=== PATIENT | female | born 1965 | race Caucasian/White ===

== ENCOUNTER 2017-06-05 14:49 | Inpatient (IN) ==
[2017-06-05] MEDS ORDERED: ACETAMINOPHEN 325 MG TABLET PO PRN (15:06)
[2017-06-05] MEDS ORDERED: ONDANSETRON 4 MG/2 ML VIAL IV PRN (15:06)
[2017-06-05] MEDS ORDERED: ALBUTEROL 2.5 MG/3 ML NEB RESP TX PRN (15:09)
[2017-06-05] MEDS ORDERED: SODIUM CHLORIDE 0.45% 1,000 ML IV SCH (15:30)
[2017-06-05] MEDS ORDERED: LEVOFLOXACIN INJ 750 MG in PREMIX 1 EACH IV SCH (16:00)
[2017-06-05 16:05] LABS: Basophils # 0.1 10*3/uL (0.0-0.2); Basophils % 0.9 % (0.0-0.8); Eosinophils # 0.2 10*3/uL (0.0-0.87); Eosinophils % 1.7 % (0.00-10.9); Hematocrit 36.7 VOL% (35.7-47.0); Hemoglobin 12.5 GM/DL (12.0-16.0); Immature Granulocytes % 0.6 %; Immature Granulocytes Absolute 0.06 #; Lymphocytes # 3.6 10*3/uL (1.4-4.0); Lymphocytes % 38.3 % (21.3-54.2); Mean Corpuscular HGB Conc 34.1 GM/DL (32-36); Mean Corpuscular Hemoglobin 30 PG (27-34); Mean Corpuscular Volume 89.1 FL (87-102); Mean Platelet Volume 9.8 FL (9.6-12.0); Monocytes # 0.6 10*3/uL (0.11-0.8); Monocytes % 6.7 % (1.7-12.7); Neutrophils # 4.8 10*3/uL (1.4-7.4); Neutrophils % 51.8 % (38.7-73.9); Platelet Count 530 T/CUMM (130-400); Red Blood Count 4.12 MC/CUMM (3.8-5.5); Red Cell Distribution Width 12.5 % (9.3-17.3); White Blood Count 9.3 T/CUMM (4-12)
--- NOTE | 2017-06-05 16:40 | EKG Report ---
Stationary ECG Study [facility] Test Date: 06/05/2017 4:41:26 PM Pat Name: GOVIND AGUAYO Department: Room: 234 Gender: F [employer]ish Mixer: : [id number] Requested by: Lico Hernandes Order Number: [id number] Reading MD: ELIJAH BANG Intervals [place] Rate: 62 P: 39 WI: 146 QRS: 15 QRSD: 93 T: 4 QT: 407 QTc: 412 Interpretive Statements SINUS RHYTHM Borderline repol abnorm Electronically Signed On 06-05-17 19:37:11 CDT by ELIJAH BANG [email or web address]
[2017-06-05 16:41] LABS: Risk Ratio 4.24; VLDL CHOLESTEROL 22.8 MG/DL
[2017-06-05 16:54] LABS: Alanine Aminotransferase 52 U/L (13-56); Albumin 3.7 G/DL (3.4-5.0); Alkaline Phosphatase 74 U/L (45-117); Aspartate Amino Transferase 25 U/L (0-37); Bilirubin,Total < 0.39 MG/DL (0.2-1.0); Blood Urea Nitrogen 20 MG/DL (7-18); Glucose 95 MG/DL (74-106); Osmolality,Calculated 279.5 MOS/KG (273-304); Potassium 4.5 MMOL/L (3.5-5.1); Sodium 139 MMOL/L (136-145); Total Protein 8.2 G/DL (6.4-8.3)
[2017-06-05] MEDS: methylPREDNISolone SOD SUC 40 MG/1 ML VIAL IV SCH ×2 (17:08→23:19)
[2017-06-05] MEDS: ENOXAPARIN 40 MG/0.4 ML SYRINGE SUBCUT SCH (17:10)
[2017-06-05 18:16] LABS: Apearance,Urine CLEAR (Clear); Bilirubin,Urine Negative (Negative); Blood, Urine Negative (Negative); Glucose,Urine (UA) Negative (Negative); Ketones,Urine 5 mg/dL (Negative); Mucus,Urine Few /LPF (Occasional); Nitrite,Urine Negative (Negative); Protein,Urine Negative; RBC,Urine 1 /HPF (0-4); Squamous Epithelial Cell,Urine Occasional /HPF (0-10); Urine Color Yellow (Yellow); Urine Specific Gravity 1.016 (1.001-1.035); Urine Urobilinogen < 2.0 EU/DL (0.2-1.0); WBC,Urine 1 /HPF (0-6)
[2017-06-05 19:10] LABS: Platelet Estimate Increased
[2017-06-05] MEDS: ALBUTEROL 2.5 MG/3 ML NEB RESP TX SCH (19:11)
[2017-06-05] MEDS: DOCUSATE SODIUM 100 MG CAPSULE PO SCH (23:18)
[2017-06-06] MEDS: ALBUTEROL 2.5 MG/3 ML NEB RESP TX SCH ×4 (00:53→20:50)
--- NOTE | 2017-06-06 07:06 | Family Practice History&Phys ---
Assessment and Plan (1) Community acquired pneumonia Status: Acute Assessment and plan: 06/06/2017: Patient's chest x-ray was actually bit improved yesterday. This will be repeated in the a.m. She is less dyspneic this morning. Current Visit: Yes (2) Acute bronchospasm Status: Acute Assessment and plan: 06/06/2017: Patient's wheezing has certainly improved with bronchodilator therapy and IV steroids. I have asked her to increase her activity and will also add incentive spirometry. Current Visit: Yes History of Present Illness Chief complaint: Cough, fever and shortness of breath History of present illness: Ms. Perry is a 51 year old female Patient 51-year-old white female presented the office on day of admission with complaint of cough, fever and increasing shortness of breath. Patient was seen in the after hours clinic 2 days before admission and found to have a right basilar stricture lobe pneumonia. Patient was treated with Levaquin and given a shot of Rocephin. Patient's fever did constanza but she continued to have increasing cough, wheezing and shortness of breath and told me she got very dyspneic the night before she came the office. Patient states she was a bit frightened by this. Repeat chest x-ray in the office showed improvement in her right posterior basilar infiltrate. Patient was noted to have prominent wheezing and dyspnea with any exertion. I felt that admission was warranted. Home Medications Medication Instructions Recorded Confirmed Type Amlodipine Bes/Olmesartan Med 1 each PO DAILY 06/05/17 06/05/17 History [Marie 10-20 mg Tablet] Aspirin Tab 325 mg PO DAILY 06/05/17 06/05/17 History Benzonatate [Tessalon] 200 mg PO TID 06/05/17 06/05/17 History Furosemide Tab [Lasix Tab] 20 mg PO DAILY 06/05/17 06/05/17 History Levofloxacin Tab [Levaquin Tab] 750 tablet PO DAILY 06/05/17 06/05/17 History Levothyroxine Tab [Synthroid Tab] 175 mcg PO DAILY 06/05/17 06/05/17 History Metoprolol Succinate 25 mg PO DAILY 06/05/17 06/05/17 History Potassium Chloride Cap/Tab [K Dur] 20 meq PO DAILY 06/05/17 06/05/17 History Allergies Allergy/AdvReac Type Severity Reaction Status Date / Time bisoprolol Allergy Verified 06/05/17 19:17 lisinopril Allergy Verified 06/05/17 19:17 Sulfa (Sulfonamide Allergy RASH Verified 06/05/17 19:17 Antibiotics) - Constitutional Constitutional: Present: chills, fatigue, fever(s), weakness - EENT Eyes: Absent: blurry vision, loss of vision Ears: Absent: decreased hearing, ear pain Nose, mouth and throat: Present: hoarseness, nasal congestion, sinus pressure, sore throat - Cardiovascular Cardiovascular: Present: chest pain at rest (Pleuritic right posterior chest pain), dyspnea, dyspnea on exertion. Absent: orthopnea, palpitations, PND - Respiratory Respiratory: Present: as per HPI, cough, dyspnea, dyspnea on exertion, wheezing - Gastrointestinal Gastrointestinal: Absent: abdominal pain, diarrhea, dyspepsia, dysphagia, nausea , vomiting - Genitourinary Genitourinary: Absent: dysuria, hematuria, urinary frequency - Musculoskeletal Musculoskeletal: Absent: back pain, joint swelling - Neurological Neurological: Absent: confusion, focal weakness, numbness, paresthesias - Psychiatric Psychiatric: Absent: anxiety, confusion - Endocrine Endocrine: Absent: fatigue, polydipsia, polyphagia - Hematologic/Lymphatic Hematologic/Lymphatic: Absent: easy bleeding, easy bruising Medical,Surgical,& Family Hx - Medical History Cardio: History of: Hypertension Endocrine: History of: Thyroid Disorder (hyperthroidism) Respiratory: History of: Obstructive Sleep Apnea - Surgical History Abdominal Surgeries: Surgical HX of: Hernia Repair Reproductive Surgeries: Surgical HX of;: Hysterectomy - Family History Family History: Reports;: Family Diabetes (maternal), Family Heart Disease ( maternal paternal), Family Hypertension (maternal paternal), Family Stroke ( paternal) Denies;: Family Cancer - Social History Smoking Status: Never smoker Frequency of Alcohol Use: Occasionally Type of Drug Use: None Exam - Constitutional Vitals: Period Temp Pulse Resp BP Sys/Owen Pulse Ox Last 24 Hr 96.3 F-98.3 F 60-84 17-20 110-120/54-79 92-96 Exam: General: Objective patient is a well-developed white female who is dyspneic at rest. Patient has audible wheezing. Patient is alert and able to give an excellent history. She is obese HEENT: Pupils equal and reactive to light. Patent nares and airway Neck: No meningismus, adenopathy, thyromegaly. There are no auscultated carotid bruits. Cardiovascular: Regular rhythm. No murmurs or gallops Chest: Patient's noted inspiratory rales in the right base and scattered inspiratory and extra wheezes in both lung anderson. Abdomen: Soft nontender to palpation No masses, rebound, guarding or tenderness. Neuro: Cranial nerves intact and DTRs and strength symmetric in all extremities. Dermatologic: No evidence of abnormal lesions or masses. Musculoskeletal: There is no joint swelling or tenderness or deformity. Extremities: Is no calf swelling or tenderness. Results - Labs CBC & BMP: 06/05/17 15:46 06/05/17 15:46 Lab Results: I have reviewed the past 24 hour labs - Diagnostic Findings Procedure: Chest x-ray: report reviewed by me (Chest x-ray in the office on 2016 revealed right posterior basilar infiltrate.)
[2017-06-06] MEDS: methylPREDNISolone SOD SUC 40 MG/1 ML VIAL IV SCH ×2 (08:35→18:04)
[2017-06-06] MEDS: BENZONATATE 100 MG CAPSULE PO SCH ×3 (08:38→20:26)
[2017-06-06] MEDS: LEVOTHYROXINE 175 MCG TABLET PO SCH (08:40)
[2017-06-06] MEDS: ENOXAPARIN 40 MG/0.4 ML SYRINGE SUBCUT SCH (08:42)
[2017-06-06] MEDS: DOCUSATE SODIUM 100 MG CAPSULE PO SCH ×2 (08:44→21:00)
[2017-06-06] MEDS ORDERED: OLMESARTAN 20 MG TABLET PO SCH (09:00)
[2017-06-06] MEDS ORDERED: amLODIPine 10 MG TABLET PO SCH (09:00)
[2017-06-06] MEDS ORDERED: FUROSEMIDE 20 MG TABLET PO SCH (09:00)
[2017-06-06] MEDS ORDERED: POTASSIUM CHLORIDE 20 MEQ TABLET PO SCH (09:00)
[2017-06-06] MEDS ORDERED: PANTOPRAZOLE 40 MG TABLET PO SCH (09:00)
[2017-06-06] MEDS ORDERED: METOPROLOL SUCCINATE XL 25 MG TABLET PO SCH (09:00)
[2017-06-06] MEDS ORDERED: LEVOFLOXACIN INJ 750 MG in PREMIX 1 EACH IV SCH (09:00)
[2017-06-06] MEDS ORDERED: ASPIRIN 325 MG TABLET PO SCH (09:00)
[2017-06-07] MEDS: ALBUTEROL 2.5 MG/3 ML NEB RESP TX SCH ×2 (01:44→08:27)
[2017-06-07] MEDS: methylPREDNISolone SOD SUC 40 MG/1 ML VIAL IV SCH (01:49)
--- NOTE | 2017-06-07 05:35 | Discharge Summary ---
Hospital Course - Hospital Course Hospital Course: Patient's a 51-year-old white female presented my office on day of admission with increased coughing, fever and wheezing. Patient has had increasing shortness of breath for the preceding 48 hours. She been seen in after hours clinic was found to have a right lower lobe pneumonia but repeat x-ray on the day of admission showed improvement in her x-ray. Patient however did not feel improved and she was quite dyspneic and had shortness of breath at rest. Patient was admitted my services she was begun on IV antibiotics, bronchodilators and IV steroids. Patient showed prompt improvement in her respiratory symptoms and her dyspnea resolved. She is able to walk up and down the halls with only a minimal amount of shortness of breath. Patient is anxious to go home and will be discharged today. Repeat chest x-ray is pending this morning. She will continue oral antibiotics, steroids and I will continue bronchodilator therapy. Diagnosis - Discharge Diagnosis (1) Community acquired pneumonia Status: Acute (2) Acute bronchospasm Status: Acute Discharge Plan - Discharge Data Disposition: Disch To Home/Self Care Condition at Discharge: Stable Discharge Diet: advance to your usual diet Activity: resume usual activities as tolerated Hygiene: no restrictions Weight Bearing at Discharge: full weight bearing Driving: no restrictions Contact your physician if you experience:: fever over 101, Shortness of breath - Discharge Medications New Albuterol Inhaler [Proventil Inhaler] 2 puff INH Q4H PRN #1 inhaler PRN Reason: Shortness Of Breath/Wheezing Albuterol Neb [Proventil Neb] 2.5 mg RESP TX Q4H PRN #100 neb PRN Reason: Shortness Of Breath/Wheezing Levofloxacin Tab [Levaquin Tab] 750 mg PO DAILY #5 tablet predniSONE TAB [PredniSONE] 20 mg PO DAILY #6 tablet Continue Metoprolol Succinate 25 mg PO DAILY Aspirin Tab 325 mg PO DAILY Amlodipine Bes/Olmesartan Med [Marie 10-20 mg Tablet] 1 each PO DAILY Potassium Chloride Cap/Tab [K Dur] 20 meq PO DAILY Furosemide Tab [Lasix Tab] 20 mg PO DAILY Benzonatate [Tessalon] 200 mg PO TID Levothyroxine Tab [Synthroid Tab] 175 mcg PO DAILY Discontinued Levofloxacin Tab [Levaquin Tab] 750 tablet PO DAILY - Follow Up or Referral Follow Up: Pancho Reis MD [Primary Care Provider] - 2 Weeks - Forms/Instructions Exam - Constitutional Vitals: Period Temp Pulse Resp BP Sys/Owen Pulse Ox Last 24 Hr 96.9 F-97.9 F 56-82 18-22 109-121/59-73 91-98 Exam: Objectively well-developed white female is awake alert and she has no dyspnea at rest. She is able give an excellent history. Cardiovascular: Heart rates regular without murmurs or gallops. Respiratory: Patient has persistent inspiratory rales and expiratory wheeze in the right lower lobe but it is much improved from admission. Abdomen: Abdomen soft and nontender to palpation. Discharge Results Procedures and tests throughout hospitalization: Pending Orders 06/05/17 15:46 Blood Culture Stat 06/07/17 04:00 XR chest 2V IN AM Chest x-ray is pending on this date. Labs on day of discharge: Labs from last 24 hours 06/06/17 07:28 C-Reactive Protein 1.46 H Preliminary micro results at discharge 06/05/17 15:46 Blood Culture - Preliminary Blood No growth at 1 day 06/05/17 15:46 Blood Culture - Preliminary Blood No growth at 1 day DS: Provider Date of admission: 06/05/17 15:10 Primary care physician: Pancho Reis MD Attending physician on admission: Pancho Reis MD Consults: 06/05/17 15:06 Consult to Case Mgmt/Social Srvs [CONS] Routine Reason for Case Mgmt/Social Srvs: Discharge Planning 06/05/17 15:09 Consult to Physician [CONS] Routine Comment: Consulting Provider: Benjamin Emanuel Person Notified: PIERRE Date Notified: 06/06/17 Time Notified: 09:11 Consult Notification Comment: DR EMANUEL STATED HE WILL SEE TOMORROW Discharging clinician: Pancho Reis MD Expected date of discharge: 06/07/17
[2017-06-07] MEDS: LEVOTHYROXINE 175 MCG TABLET PO SCH (06:17)
--- NOTE | 2017-06-07 07:17 | Pulmonology Consult Note ---
Assessment and Plan (1) Community acquired pneumonia Status: Acute Assessment and plan: Reportedly had right lower lobe infiltrate on office x-ray. No x-rays here to review. Agree with empiric Levaquin. Would keep on prednisone for about 5 days. Current Visit: Yes (2) Acute bronchospasm Status: Acute Assessment and plan: She has had recurrent episodes of bronchitis with bronchospasm. I suspect that she has asthma. I have asked her to see me in 4-6 weeks so that we can get spirometry on her and determine if she needs a controller medication for asthma. Current Visit: Yes History of Present Illness Chief complaint: Cough congestion History of present illness: Ms. Perry is a 51 year old female who has been sick for a week or so. She was seen in the office and admitted yesterday. Said to have had pneumonia on her x-ray in the office, but it is not available for review here. She has gotten a good bit better overnight with IV steroids nebulized bronchodilators and Levaquin. She is going to be discharged today. She apparently had infiltrate in the right lower lobe posteriorly. She is a non-smoker. She has had frequent episodes of sinusitis and bronchitis over the years. May well have asthma. I have asked her to come see me in the office in a month to 6 weeks and let us to PFTs to evaluate for that. She may need a controller medicine long-term. Home Medications Medication Instructions Recorded Confirmed Type Amlodipine Bes/Olmesartan Med 1 each PO DAILY 06/05/17 06/05/17 History [Marie 10-20 mg Tablet] Aspirin Tab 325 mg PO DAILY 06/05/17 06/05/17 History Benzonatate [Tessalon] 200 mg PO TID 06/05/17 06/05/17 History Furosemide Tab [Lasix Tab] 20 mg PO DAILY 06/05/17 06/05/17 History Levothyroxine Tab [Synthroid Tab] 175 mcg PO DAILY 06/05/17 06/05/17 History Metoprolol Succinate 25 mg PO DAILY 06/05/17 06/05/17 History Potassium Chloride Cap/Tab [K Dur] 20 meq PO DAILY 06/05/17 06/05/17 History Albuterol Inhaler [Proventil 2 puff INH Q4H PRN #1 inhaler 06/07/17 Rx Inhaler] Albuterol Neb [Proventil Neb] 2.5 mg RESP TX Q4H PRN #100 neb 06/07/17 Rx Levofloxacin Tab [Levaquin Tab] 750 mg PO DAILY #5 tablet 06/07/17 Rx predniSONE TAB [PredniSONE] 20 mg PO DAILY #6 tablet 06/07/17 Rx Allergies Allergy/AdvReac Type Severity Reaction Status Date / Time bisoprolol Allergy Verified 06/05/17 19:17 lisinopril Allergy Verified 06/05/17 19:17 Sulfa (Sulfonamide Allergy RASH Verified 06/05/17 19:17 Antibiotics) 12 point system: reviewed and no additional remarkable complaints except as stated - Constitutional Constitutional: Present: fatigue, fever(s), frequent falls, weakness - EENT Nose, mouth and throat: Present: nasal congestion - Cardiovascular Cardiovascular: Present: chest pain at rest, dyspnea, dyspnea on exertion - Respiratory Respiratory: Present: cough, dyspnea, dyspnea on exertion, wheezing, change in phlegm color - Endocrine Endocrine: Present: fatigue Exam (Pulmonay) H&P - Constitutional Vitals: Period Temp Pulse Resp BP Sys/Owen Pulse Ox Last 24 Hr 96.9 F-97.9 F 56-82 18-22 109-121/59-73 91-98 Exam: She is afebrile and vital signs are normal. Pupils react to light. Throat is clear. Neck supple no bruits. Chest reveals some bilateral expiratory rhonchi and a few wheezes. Heart normal rate rhythm no murmurs no rubs no gallops. Abdomen soft nontender no masses. Extremities no clubbing cyanosis edema. Calves nontender. Medical,Surgical,& Family Hx - Medical History Cardio: History of: Hypertension Endocrine: History of: Thyroid Disorder (Hypothyroidism) Respiratory: History of: Obstructive Sleep Apnea - Surgical History Abdominal Surgeries: Surgical HX of: Hernia Repair Reproductive Surgeries: Surgical HX of;: Hysterectomy - Family History Family History: Reports;: Family Diabetes (maternal), Family Heart Disease ( maternal paternal), Family Hypertension (maternal paternal), Family Stroke ( paternal) Denies;: Family Cancer - Social History Smoking Status: Never smoker Frequency of Alcohol Use: Occasionally Type of Drug Use: None Results - Labs CBC & BMP: 06/05/17 15:46 06/05/17 15:46 Lab Results: I have reviewed the past 24 hour labs Specialty Discharge - Follow Up or Referrals Follow up with: Pancho Reis MD [Primary Care Provider] - 2 Weeks
[2017-06-07 07:36] VITALS: BP 113/77
--- NOTE | 2017-06-07 08:24 | XRay Report ---
XR chest 2V Indication: Pneumonia Comparison: 13 May 2008 Findings: The heart and mediastinum are normal in size and configuration. The pulmonary vascularity is normal in caliber. Increased right lower lung density. No other lung infiltrates, effusions, pneumothorax or other abnormality is demonstrated. Impression: Faint increased right lower lung density, may indicate pneumonia. PROCEDURE INTERPRETED AT [facility] DEPARTMENT OF RADIOLOGY Final Report Signed by: Dr. Thuan Dunlap
--- NOTE | 2017-06-07 09:39 | Physician Query Form ---
CLICK EDIT DOCUMENT TO SELECT QUERY ANSWER --> OK --> SIGN PROVIDERS: Make your selection(s) from the choices in EACH section by typing an "x" and enter comments in the comment section. Please use your independent medical judgment in providing your response. This request does not imply that any particular answer is desired or expected. 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 Energy Needs:1903 X 1.3-1.5= 9612-9902 calories minus 500-1000 for weight loss= 1473 to 1854 or 3610-7812 regina If applicable, please provide an associated diagnosis related to the abnormal BMI: BMI of 40 or greater: ( ) Overweight (x ) Obesity ( ) Morbid//Severe Obesity ( ) Obesity with Alveolar Hypoventilation ( ) Weight Gain ( ) BMI is not significant ( ) Other, please specify: ( ) Clinically unable to determine COMMENTS: PLEASE ALSO DOCUMENT RESPONSE IN PROGRESS NOTES AND/OR DISCHARGE SUMMARY Use of terms such as suspected, likely, or probable (associated with a specific diagnosis that is being evaluated, monitored, or treated as if it exists) are acceptable and can be restated in the discharge summary if not ruled out. MTDD
== END 2017-06-07 10:38 | disposition home or self-care (01) | DRG 194 ==
LOC: N.2E 15:10
PROVIDERS: ADMIT Family Medicine; ATTEND Family Medicine